=== PATIENT | male | born 1970 | race Caucasian/White ===

== ENCOUNTER 2017-09-29 08:51 | Inpatient (IN) | payer OTHER ==
[2017-09-29 11:16] VITALS: BMI 25.2
--- NOTE | 2017-09-29 13:05 | HP ---
COWS - Scale Resting Pulse: 2= [place] 101-120 Sweatin= Chills/Flushing Restless Observation: 3= Extraneous Movement Pupil Size: 2= Moderately Dilated Bone or Joint Aches: 4=Acute Joint/Muscle Pain Runny Nose/ Eye Tearin= Nasal Congestion GI Upset > 30mins: 1= Stomach Cramp Tremor Observation: 2= Slight Tremor Visible Yawning Observation: 1= 1-2x During Session Anxiety or Irritability: 2=Irritable/Anxious Goose Flesh Skin: 0=Smooth Skin COWS Score: 19 CIWA Score - CIWA Score Nausea/Vomitin-No Nausea/No Vomiting Muscle Tremors: 4-Moderate,w/Arms Extend Anxiety: 4-Mod. Anxious/Guarded Agitation: 4-Moderately Restless Paroxysmal Sweats: 1-Minimal Palms Moist Orientation: 0-Oriented Tacttile Disturbances: 3-Moderate Itch/Numb/Burn Auditory Disturbances: 0-None Visual Disturbances: 0-None Headache: 0-None Present CIWA-Ar Total Score: 16 Admission ROS S - HPI Chief Complaint: WITHDRAWAL SX FROM HEROIN AND ALCOHOL Allergies/Adverse Reactions: Allergies Allergy/AdvReac Type Severity Reaction Status Date / Time No Known Allergies Allergy Verified 09/29/17 12:11 History of Present Illness: 47 Y/O MALE WITH A HX OF HEROIN AND ALCOHOL DEPENDENCE SEEKING DETOX [place] Exam Limitations: No Limitations - Ebola screening Have you traveled outside of the country in the last 21 days: No (N) Have you had contact with anyone from an Ebola affected area: No Have you been sick,other than usual withdrawal symptoms: No Do you have a fever: No - Review of Systems Constitutional: Chills, Loss of Appetite, Night Sweats, Changes in sleep, Unintentional Wgt. Loss EENT: reports: Tearing, Nose Congestion Respiratory: reports: No Symptoms reported Cardiac: reports: No Symptoms Reported GI: reports: Diarrhea, Nausea, Poor Appetite, Vomiting : reports: No Symptoms Reported Musculoskeletal: reports: Joint Pain (LEFT SHOULDER WRESTLING INJURY), Muscle Pain Integumentary: reports: Bruising (IVD INJ SITES), Other (TATTOOS ON HANDS) Neuro: reports: Tremors Endocrine: reports: No Symptoms Reported Hematology: reports: No Symptoms Reported Psychiatric: reports: Orientated x3 Other Systems: Reviewed and Negative Patient History - Patient Medical History Hx Anemia: No Hx Asthma: No Hx Chronic Obstructive Pulmonary Disease (COPD): No Hx Cardiac Disorders: No Hx Hypertension: No HX Cerebrovascular Accident: No Hx Seizures: No Hx Diabetes: No Hx Gastrointestinal Disorders: No Hx Genitourinary Disorders: No Hx Sexually Transmitted Disorders: No Hx Renal Disease (ESRD): No Hx Thyroid Disease: No Hx Human Immunodeficiency Virus (HIV): Yes (SINCE 1992; ON MEDS) Hx Hepatitis C: Yes (TREATED WITH HARVONI-RESOLVE) Hx Depression: No Hx Suicide Attempt: No Hx Schizophrenia: No - Patient Surgical History Past Surgical History: Yes Hx Neurologic Surgery: No Hx Cataract Extraction: No Hx Cardiac Surgery: No Hx Lung Surgery: No Hx Breast Surgery: No Hx Breast Biopsy: No Hx Abdominal Surgery: No Hx Appendectomy: No Hx Cholecystectomy: Yes (in 2007) Hx Genitourinary Surgery: No Hx Orthopedic Surgery: No Anesthesia Reaction: No - PPD History Previous Implant?: Yes Documented Results: Negative w/o proof Implanted On Prior R Admission?: No PPD to be Administered?: Yes - Reproductive History Patient is a Female of Child Bearing Age (11 -55 yrs old): No (MALE) - Smoking Cessation Smoking history: Current every day smoker Have you smoked in the past 12 months: Yes Aproximately how many cigarettes per day: 20 Hx Chewing Tobacco Use: No Initiated information on smoking cessation: Yes 'Breaking Loose' booklet given: 09/29/17 - Substance & Tx. History Hx Alcohol Use: Yes (BEER/VODKA) Hx Substance Use: Yes (HEROIN) Substance Use Type: Alcohol, Heroin - Substances Abused Heroin Route: Injection Frequency: Daily Amount used: 6-8 bags Age of first use: 13 Date of Last Use: 09/29/17 Alcohol-beer/vodka Route: Oral Frequency: Daily Amount used: 3-6 pks./1 pt. Age of first use: 13 Date of Last Use: 09/29/17 Admission Physical Exam BHS - Vital Signs Vital Signs: Vital Signs - 24 hr 09/29/17 11:14 Temperature 97.1 F L Pulse Rate 105 H Respiratory 20 Rate Blood Pressure 128/78 - Physical General Appearance: Yes: Moderate Distress, Alcohol on Breath, Intoxicated, Irritable, Anxious, Other (RESTLESS) HEENTM: Yes: EOMI, Normocephalic, EILEEN, Pharynx Normal, Nasal Congestion Respiratory: Yes: Chest Non-Tender, Lungs Clear, Normal Breath Sounds, No Respiratory Distress Neck: Yes: No masses,lesions,Nodules, Supple, Trachea in good position Breast: Yes: Breast Exam Deferred Cardiology: Yes: Regular Rhythm, Regular Rate, S1, S2 Abdominal: Yes: Normal Bowel Sounds, Non Tender, Flat, Soft Genitourinary: Yes: Other (N/C) Back: Yes: Within Normal Limits Musculoskeletal: Yes: full range of Motion, Gait Steady Extremities: Yes: Normal Range of Motion, Non-Tender 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 NO REDNESS OR SWELLING) Lymphatic: Yes: Within Normal Limits - Diagnostic (1) Alcohol dependence with uncomplicated withdrawal Current Visit: Yes Status: Acute (2) Opioid dependence with withdrawal Current Visit: Yes Status: Acute (3) HIV (human immunodeficiency virus infection) Current Visit: Yes Status: Chronic Cleared for Admission [facility] - Detox or Rehab [facility] Level of Care: Medically Managed Detox Regimen/Protocol: Methadone/Librium [facility] Breath Alcohol Content Breath Alcohol Content: 0.254 Urine Drug Screen - Results Drug Screen Negative: No Urine Drug Screen Results: OPI-Opiates
[2017-09-29] MEDS ORDERED: MENTHOL/PHENOL 1 EACH UD MM PRN (13:06)
[2017-09-29] MEDS ORDERED: guaiFENesin/D-METHORPHAN HB 10 ML UNIT-DOSE CUPS PO PRN (13:06)
[2017-09-29] MEDS ORDERED: MAGNESIUM CITRATE 300 ML BOTTLE PO PRN (13:06)
[2017-09-29] MEDS ORDERED: P-EPHED 60MG/TRIPROLIDI 2.5MG TABLET PO PRN (13:06)
[2017-09-29] MEDS ORDERED: MAGNESIUM HYDROX 2400MG/30ML ORAL SUSPENSION 30 ML CUP PO PRN (13:06)
[2017-09-29] MEDS ORDERED: LOPERAMIDE HCL 2 MG CAPSULE PO PRN (13:06)
[2017-09-29] MEDS ORDERED: chlordiazePOXIDE HCL 25 MG CAPSULE PO PRN (13:06)
[2017-09-29] MEDS ORDERED: NICOTINE POLACRILEX 4 MG GUM BC PRN (13:06)
[2017-09-29] MEDS ORDERED: IBUPROFEN 400 MG TABLET (FP) PO PRN (13:06)
[2017-09-29] MEDS ORDERED: MAG HYDROX/AL HYDROX/SIMETH 30 ML UNIT-DOSE CUP PO PRN (13:06)
[2017-09-29] MEDS ORDERED: ACETAMINOPHEN 325 MG TABLET (FP) PO PRN (13:06)
[2017-09-29] MEDS ORDERED: chlordiazePOXIDE HCL 25 MG CAPSULE PO ONE (14:00)
[2017-09-29] MEDS ORDERED: METHADONE HCL 10 MG TABLET (FOR DETOX USE ONLY) PO ONE ×2 (14:15→23:00)
[2017-09-29] MEDS: NICOTINE 21 MG/24 HOURS TOPICAL PATCH TD SCH (15:07)
[2017-09-29 16:51] LABS: HEMATOCRIT 39.5 % (35.4-49); MCH 29.4 pg (25.7-33.7); MEAN CELL VOLUME 89.1 fl (80-96); MEAN PLT VOLUME 9.1 fl (7.5-11.1); PLATELET COUNT 136 K/MM3 (134-434); RBC 4.44 M/mm3 (4.00-5.60); RDW 15.4 % (11.9-15.9); WHITE BLOOD COUNT 5.2 K/mm3 (4.0-10.0)
[2017-09-29 16:52] LABS: URINE APPEARANCE CLEAR; URINE BILIRUBIN NEGATIVE (NEGATIVE); URINE BLOOD NEGATIVE (NEGATIVE); URINE COLOR STRAW; URINE GLUCOSE (UA) NEGATIVE (NEGATIVE); URINE KETONE NEGATIVE (NEGATIVE); URINE LEUK ESTERASE NEGATIVE (NEGATIVE); URINE NITRITE NEGATIVE (NEGATIVE); URINE PROTEIN NEGATIVE (NEGATIVE); URINE UROBILINOGEN NEGATIVE mg/dL (0.2-1.0)
[2017-09-29 17:00] LABS: ALBUMIN 4.1 g/dl (3.4-5.0); ALK PHOS 230 U/L (45-117); ANION GAP 10 (8-16); BILIRUBIN,TOTAL 0.3 mg/dL (0.2-1.0); BLOOD UREA NITROGEN 5 mg/dL (7-18); CALCIUM 8.5 mg/dL (8.5-10.1); CHLORIDE 100 mmol/L (98-107); CO2 27 mmol/L (21-32); CREATININE 0.8 mg/dL (0.7-1.3); GLUCOSE,RANDOM 86 mg/dL (74-106); POTASSIUM 3.9 mmol/L (3.5-5.1); SGOT/AST 41 U/L (15-37); SGPT/ALT 24 U/L (12-78); SODIUM 137 mmol/L (136-145); TOT PROT 8.3 g/dl (6.4-8.2)
[2017-09-29] MEDS: chlordiazePOXIDE HCL 25 MG CAPSULE PO SCH ×2 (17:51→22:18)
[2017-09-29] MEDS: RITONAVIR 100 MG TABLET PO SCH (22:22)
[2017-09-29] MEDS: RALTEGRAVIR POTASSIUM 400 MG TAB PO SCH (22:22)
[2017-09-29] MEDS: ETRAVIRINE 200 MG TABLET PO SCH (22:22)
[2017-09-29] MEDS: DARUNAVIR ETHANOLATE 600 MG TAB PO SCH (22:22)
[2017-09-29] MEDS: THIAMINE HCL 100 MG TABLET (FP) PO SCH (22:35)
[2017-09-30] MEDS: chlordiazePOXIDE HCL 25 MG CAPSULE PO SCH ×4 (05:52→22:33)
[2017-09-30] MEDS ORDERED: METHADONE HCL 10 MG TABLET (FOR DETOX USE ONLY) PO SCH (10:00)
[2017-09-30] MEDS: PRENATAL VITAMINS W/ FOLIC ACID TABLET (FP) PO SCH (10:52)
[2017-09-30] MEDS: NICOTINE 21 MG/24 HOURS TOPICAL PATCH TD SCH (10:53)
--- NOTE | 2017-09-30 11:24 | PN ---
S CIWA - CIWA Score Nausea/Vomitin Muscle Tremors: 3 Anxiety: 3 Agitation: 3 Paroxysmal Sweats: 2 Orientation: 0-Oriented Tacttile Disturbances: 1-Very Mild Itch/Numbness Auditory Disturbances: 1-Very Mild Visual Disturbances: 0-None Headache: 2-Mild CIWA-Ar Total Score: 18 S Progress Note (SOAP) Subjective: ALERT,IRRITABLE,ANXIOUS,INTERRUPTED SLEEP,PAIN IN THE BODY AND BACK,TREMOR Objective: 09/30/17 11:32 Vital Signs Temperature 97.0 F L 09/30/17 09:53 Pulse Rate 97 H 09/30/17 09:53 Respiratory Rate 18 09/30/17 09:53 Blood Pressure 128/94 09/30/17 09:53 O2 Sat by Pulse Oximetry (%) EKG NSR,NORMAL ECG Laboratory Last Values WBC 5.2 K/mm3 (4.0-10.0) 09/29/17 14:15 RBC 4.44 M/mm3 (4.00-5.60) 09/29/17 14:15 Hgb 13.0 GM/dL (11.7-16.9) 09/29/17 14:15 Hct 39.5 % (35.4-49) 09/29/17 14:15 MCV 89.1 fl (80-96) 09/29/17 14:15 MCH 29.4 pg (25.7-33.7) 09/29/17 14:15 MCHC 33.0 g/dl (32.0-35.9) 09/29/17 14:15 RDW 15.4 % (11.9-15.9) 09/29/17 14:15 Plt Count 136 K/MM3 (134-434) 09/29/17 14:15 MPV 9.1 fl (7.5-11.1) 09/29/17 14:15 Sodium 137 mmol/L (136-145) 09/29/17 14:15 Potassium 3.9 mmol/L (3.5-5.1) 09/29/17 14:15 Chloride 100 mmol/L (98-107) 09/29/17 14:15 Carbon Dioxide 27 mmol/L (21-32) 09/29/17 14:15 Anion Gap 10 (8-16) 09/29/17 14:15 BUN 5 mg/dL (7-18) L 09/29/17 14:15 Creatinine 0.8 mg/dL (0.7-1.3) 09/29/17 14:15 Creat Clearance w eGFR > 60 (>60) 09/29/17 14:15 Random Glucose 86 mg/dL (74-106) 09/29/17 14:15 Calcium 8.5 mg/dL (8.5-10.1) 09/29/17 14:15 Total Bilirubin 0.3 mg/dL (0.2-1.0) 09/29/17 14:15 AST 41 U/L (15-37) H 09/29/17 14:15 ALT 24 U/L (12-78) 09/29/17 14:15 Alkaline Phosphatase 230 U/L (45-117) H 09/29/17 14:15 Total Protein 8.3 g/dl (6.4-8.2) H 09/29/17 14:15 Albumin 4.1 g/dl (3.4-5.0) 09/29/17 14:15 Urine Color Straw 09/29/17 15:00 Urine Appearance Clear 09/29/17 15:00 Urine pH 5.0 (5.0-8.0) 09/29/17 15:00 Ur Specific [place] 1.005 (1.001-1.035) 09/29/17 15:00 Urine Protein Negative (NEGATIVE) 09/29/17 15:00 Urine Glucose (UA) Negative (NEGATIVE) 09/29/17 15:00 Urine Ketones Negative (NEGATIVE) 09/29/17 15:00 Urine Blood Negative (NEGATIVE) 09/29/17 15:00 Urine Nitrite Negative (NEGATIVE) 09/29/17 15:00 Urine Bilirubin Negative (NEGATIVE) 09/29/17 15:00 Urine Urobilinogen Negative mg/dL (0.2-1.0) 09/29/17 15:00 Ur Leukocyte Esterase Negative (NEGATIVE) 09/29/17 15:00 RPR Titer Nonreactive (NONREACTIVE) 09/29/17 14:15 Assessment: 09/30/17 11:33 WITHDRAWAL SYMPTOM Plan: CONTINUE DETOX
[2017-09-30] MEDS: ETRAVIRINE 200 MG TABLET PO SCH ×2 (11:45→22:34)
[2017-09-30] MEDS: RITONAVIR 100 MG TABLET PO SCH ×2 (11:45→22:34)
[2017-09-30] MEDS: RALTEGRAVIR POTASSIUM 400 MG TAB PO SCH ×2 (11:45→22:34)
[2017-09-30] MEDS: DARUNAVIR ETHANOLATE 600 MG TAB PO SCH ×2 (11:45→22:34)
--- NOTE | 2017-09-30 12:21 | EKG ---
Test Reason : Blood Pressure : / mmHG Vent. Rate : 089 BPM Atrial Rate : 089 BPM P-R Int : 142 ms QRS Dur : 078 ms QT Int : 374 ms P-R-T Axes : 008 032 039 degrees QTc Int : 455 ms NORMAL SINUS RHYTHM NORMAL ECG NO PREVIOUS ECGS AVAILABLE Confirmed by DAMEON VARNER MD ([id number]) on 09/30/2017 12:20:57 PM Referred By: Confirmed By:DAMEON VARNER MD
[2017-09-30] MEDS: THIAMINE HCL 100 MG TABLET (FP) PO SCH (22:33)
[2017-10-01] MEDS: chlordiazePOXIDE HCL 25 MG CAPSULE PO SCH ×2 (06:22→10:39)
[2017-10-01] MEDS: hydrOXYzine PAMOATE 50 MG CAPSULE (FP) PO PRN ×2 (10:38→22:56)
[2017-10-01] MEDS: NICOTINE 21 MG/24 HOURS TOPICAL PATCH TD SCH (10:39)
[2017-10-01] MEDS: METHADONE HCL 5 MG TABLET (FOR DETOX USE ONLY) PO SCH (10:39)
[2017-10-01] MEDS: RALTEGRAVIR POTASSIUM 400 MG TAB PO SCH ×2 (10:39→22:55)
[2017-10-01] MEDS: ETRAVIRINE 200 MG TABLET PO SCH ×2 (10:39→22:53)
[2017-10-01] MEDS: DARUNAVIR ETHANOLATE 600 MG TAB PO SCH ×2 (10:40→22:53)
[2017-10-01] MEDS: PRENATAL VITAMINS W/ FOLIC ACID TABLET (FP) PO SCH (10:40)
[2017-10-01] MEDS: RITONAVIR 100 MG TABLET PO SCH ×2 (10:40→22:53)
--- NOTE | 2017-10-01 11:57 | PN ---
[facility] CIWA - CIWA Score Nausea/Vomitin-Mild Nausea/No Vomiting Muscle Tremors: 4-Moderate,w/Arms Extend Anxiety: 3 Agitation: 3 Paroxysmal Sweats: 1-Minimal Palms Moist Orientation: 1-Uncertain about Date Tacttile Disturbances: 0-None Auditory Disturbances: 0-None Visual Disturbances: 0-None Headache: 1-Very Mild CIWA-Ar Total Score: 14 BHS COWS - Scale Resting Pulse: 1= [place] 81-100 Sweatin= Chills/Flushing Restless Observation: 1= Difficult to Sit Still Pupil Size: 1= Pupils >than Normal Bone or Joint Aches: 1= Mild Discomfort Runny Nose/ Eye Tearin= Nasal Congestion GI Upset > 30mins: 1= Stomach Cramp Tremor Observation of Outstretched Hands: 2= Slight Tremor Visible Yawning Observation: 0= None Anxiety or Irritability: 2=Irritable/Anxious Goose Flesh Skin: 3=Piloerection COWS Score: 14 S Progress Note (SOAP) Subjective: joint aches tremor sweat anxiety irritable stuffy running nose Objective: 10/01/17 11:57 Vital Signs Temperature 98.1 F 10/01/17 11:17 Pulse Rate 95 H 10/01/17 11:17 Respiratory Rate 18 10/01/17 11:17 Blood Pressure 110/91 10/01/17 11:17 O2 Sat by Pulse Oximetry (%) Laboratory Last Values WBC 5.2 K/mm3 (4.0-10.0) 09/29/17 14:15 RBC 4.44 M/mm3 (4.00-5.60) 09/29/17 14:15 Hgb 13.0 GM/dL (11.7-16.9) 09/29/17 14:15 Hct 39.5 % (35.4-49) 09/29/17 14:15 MCV 89.1 fl (80-96) 09/29/17 14:15 MCH 29.4 pg (25.7-33.7) 09/29/17 14:15 MCHC 33.0 g/dl (32.0-35.9) 09/29/17 14:15 RDW 15.4 % (11.9-15.9) 09/29/17 14:15 Plt Count 136 K/MM3 (134-434) 09/29/17 14:15 MPV 9.1 fl (7.5-11.1) 09/29/17 14:15 Sodium 137 mmol/L (136-145) 09/29/17 14:15 Potassium 3.9 mmol/L (3.5-5.1) 09/29/17 14:15 Chloride 100 mmol/L (98-107) 09/29/17 14:15 Carbon Dioxide 27 mmol/L (21-32) 09/29/17 14:15 Anion Gap 10 (8-16) 09/29/17 14:15 BUN 5 mg/dL (7-18) L 09/29/17 14:15 Creatinine 0.8 mg/dL (0.7-1.3) 09/29/17 14:15 Creat Clearance w eGFR > 60 (>60) 09/29/17 14:15 Random Glucose 86 mg/dL (74-106) 09/29/17 14:15 Calcium 8.5 mg/dL (8.5-10.1) 09/29/17 14:15 Total Bilirubin 0.3 mg/dL (0.2-1.0) 09/29/17 14:15 AST 41 U/L (15-37) H 09/29/17 14:15 ALT 24 U/L (12-78) 09/29/17 14:15 Alkaline Phosphatase 230 U/L (45-117) H 09/29/17 14:15 Total Protein 8.3 g/dl (6.4-8.2) H 09/29/17 14:15 Albumin 4.1 g/dl (3.4-5.0) 09/29/17 14:15 Urine Color Straw 09/29/17 15:00 Urine Appearance Clear 09/29/17 15:00 Urine pH 5.0 (5.0-8.0) 09/29/17 15:00 Ur Specific [place] 1.005 (1.001-1.035) 09/29/17 15:00 Urine Protein Negative (NEGATIVE) 09/29/17 15:00 Urine Glucose (UA) Negative (NEGATIVE) 09/29/17 15:00 Urine Ketones Negative (NEGATIVE) 09/29/17 15:00 Urine Blood Negative (NEGATIVE) 09/29/17 15:00 Urine Nitrite Negative (NEGATIVE) 09/29/17 15:00 Urine Bilirubin Negative (NEGATIVE) 09/29/17 15:00 Urine Urobilinogen Negative mg/dL (0.2-1.0) 09/29/17 15:00 Ur Leukocyte Esterase Negative (NEGATIVE) 09/29/17 15:00 RPR Titer Nonreactive (NONREACTIVE) 09/29/17 14:15 lab noted Assessment: 10/01/17 11:58 withdrawal sx Plan: continue detox
[2017-10-01] MEDS: chlordiazePOXIDE 5 MG CAPSULE PO SCH ×2 (18:30→22:52)
[2017-10-01] MEDS: THIAMINE HCL 100 MG TABLET (FP) PO SCH (22:53)
[2017-10-02] MEDS: chlordiazePOXIDE 5 MG CAPSULE PO SCH ×2 (05:31→10:38)
--- NOTE | 2017-10-02 10:23 | PN ---
BHS Progress Note (SOAP) Subjective: ALERT,IRRITABLE,ANXIOUS,INTERRUPTED SLEEP,PAIN IN THE BODY AND BACK Objective: 10/02/17 10:22 Vital Signs Temperature 98.0 F 10/02/17 06:00 Pulse Rate 80 10/02/17 06:00 Respiratory Rate 18 10/02/17 06:00 Blood Pressure 115/62 10/02/17 06:00 O2 Sat by Pulse Oximetry (%) Assessment: 10/02/17 10:23 WITHDRAWAL SYMPTOM Plan: CONTINUE DETOX
[2017-10-02] MEDS: METHADONE HCL 5 MG TABLET (FOR DETOX USE ONLY) PO SCH (10:38)
[2017-10-02] MEDS: PRENATAL VITAMINS W/ FOLIC ACID TABLET (FP) PO SCH (10:39)
[2017-10-02] MEDS: NICOTINE 21 MG/24 HOURS TOPICAL PATCH TD SCH (10:39)
[2017-10-02] MEDS: RITONAVIR 100 MG TABLET PO SCH ×2 (10:39→22:22)
[2017-10-02] MEDS: ETRAVIRINE 200 MG TABLET PO SCH ×2 (10:39→22:23)
[2017-10-02] MEDS: RALTEGRAVIR POTASSIUM 400 MG TAB PO SCH ×2 (10:39→22:23)
[2017-10-02] MEDS: DARUNAVIR ETHANOLATE 600 MG TAB PO SCH ×2 (10:39→22:22)
[2017-10-02] MEDS: chlordiazePOXIDE HCL 10 MG CAPSULE PO SCH ×2 (17:48→22:22)
[2017-10-02] MEDS: THIAMINE HCL 100 MG TABLET (FP) PO SCH (22:22)
[2017-10-02] MEDS: hydrOXYzine PAMOATE 50 MG CAPSULE (FP) PO PRN (22:25)
[2017-10-03] MEDS: chlordiazePOXIDE HCL 10 MG CAPSULE PO SCH (05:29)
--- NOTE | 2017-10-03 08:33 | PN ---
S Progress Note Note: ALERT,NO COMPLAINT,NO WITHDRAWAL SYMPTOM,WOULD LIKE TO BE DISCHARGED TODAY, PATIENT IS STABLE FOR DISCHARGE,FOLLOW UP WITH AFTER CARE PROGRAM ARRANGEMENT
--- NOTE | 2017-10-03 08:36 | DS ---
[facility] Detox Discharge Summary Admission Date: 09/29/17 Discharge Date: 10/03/17 - History Present History: Alcohol Dependence, Opioid Dependence Additional Comments: FOLLOW UP WITH AFTER CARE PROGRAM ARRANGEMENT Pertinent Past History: HIV - Physical Exam Results Vital Signs: Vital Signs Temperature 97.9 F 10/03/17 06:00 Pulse Rate 79 10/03/17 06:00 Respiratory Rate 18 10/03/17 06:00 Blood Pressure 108/66 10/03/17 06:00 O2 Sat by Pulse Oximetry (%) Pertinent Admission Physical Exam Findings: WITHDRAWAL SIGN AND SYMPTOM - Treatment Hospital Course: Detox Protocol Followed, Detoxed Safely, Responded well, Discharged Condition Good Patient has Accepted a Rehab Referral to: DECLINED - Medication Discharge Medications: Ambulatory Orders Darunavir Ethanolate [Prezista -] 600 mg PO BID 09/29/17 Etravirine [Intelence -] 200 mg PO BID 09/29/17 Raltegravir [Isentress -] 400 mg PO BID 09/29/17 Ritonavir [Norvir -] 100 mg PO BID 09/29/17 - Diagnosis (1) Opioid dependence with withdrawal Current Visit: Yes Status: Acute (2) Alcohol dependence with uncomplicated withdrawal Current Visit: Yes Status: Acute (3) HIV (human immunodeficiency virus infection) Current Visit: Yes Status: Chronic - AMA Did Patient Leave Against Medical Advice: No
[2017-10-03] MEDS: ETRAVIRINE 200 MG TABLET PO SCH (09:40)
[2017-10-03] MEDS: NICOTINE 21 MG/24 HOURS TOPICAL PATCH TD SCH (09:40)
[2017-10-03] MEDS: RITONAVIR 100 MG TABLET PO SCH (09:40)
[2017-10-03] MEDS: DARUNAVIR ETHANOLATE 600 MG TAB PO SCH (09:40)
[2017-10-03] MEDS: PRENATAL VITAMINS W/ FOLIC ACID TABLET (FP) PO SCH (09:42)
[2017-10-03] MEDS: RALTEGRAVIR POTASSIUM 400 MG TAB PO SCH (09:42)
[2017-10-03] MEDS ORDERED: METHADONE HCL 10 MG TABLET (FOR DETOX USE ONLY) PO SCH (10:00)
[2017-10-03 10:21] VITALS: BP 108/71; PULSE 87; TEMP 97.7
[2017-10-04] MEDS ORDERED: METHADONE HCL 5 MG TABLET (FOR DETOX USE ONLY) PO SCH (06:00)
== END 2017-10-03 10:09 | disposition home or self-care (01) | DRG 773 ==
LOC: YASAS 08:51 → Y6N 13:28
PROVIDERS: ADMIT Internal Medicine; ATTEND Internal Medicine
PROC: HZ2ZZZZ Detoxification Services for Substance Abuse Treatment (ICD-10-PCS; principal; 2017-09-29)
DX: F11.23 Opioid dependence with withdrawal (principal); F10.230 Alcohol dependence with withdrawal, uncomplicated; Z21 Asymptomatic human immunodeficiency virus [HIV] infection status; Z86.19 Personal history of other infectious and parasitic diseases
CPT/HCPCS: 36415; 80053; 81003; 85027; 86593; 93005; 93010